=== PATIENT | female | born 1950 | race Hispanic/Latino ===

== ENCOUNTER 2023-01-12 13:51 | Inpatient (IN) | payer MEDICARE, MEDICAID ==
[2023-01-12 14:24] LABS: #Eosinphils 0.1 thou/uL (0.0-0.7); #Lymphocytes 1.1 thou/uL (1.20-3.40); #Monocytes 0.3 thou/uL (0.11-0.59); %Basophils 0.2 % (0.0-1.0); %Eosinophils 2.5 % (0.0-10.0); %Lymphocytes 23.9 % (21.0-51.0); %Monocytes 7.2 % (0.0-10.0); %Neutrophils 66.4 % (42.0-75.0); Hemoglobin 9.4 g/dL (12.0-16.0); Mean Corpuscular HGB CONC 33.4 g/dL (32.0-36.0); Mean Corpuscular Hemoglobin 33.4 pg (27.0-31.0); Mean Platelet Volume 8.3 fL (7.4-10.4); Platelet Count 188 10x3/uL (130-400); RBC Distribution Width 14.7 % (11.5-14.5); Red Blood Cell (RBC) Count 2.82 mill/uL (4.20-5.40); White Blood Cell (WBC) Count 4.6 10x3/uL (4.8-10.8)
[2023-01-12 16:18] LABS: ALT (SGPT) 13 U/L (8-55); AST (SGOT) 17 U/L (5-34); Albumin 3.5 g/dL (3.4-4.8); Alkaline Phosphatase 151 U/L (40-110); Anion Gap 24 mmol/L (10-20); BUN (Urea Nitrogen) 100 mg/dL (9.8-20.1); Bilirubin, Total 0.8 mg/dL (0.2-1.2); Calc. Creatinine Clearance 0 mL/min (70-130); Calcium 7.4 mg/dL (7.8-10.44); Carbon Dioxide 20 mmol/L (23-31); Chloride 99 mmol/L (98-107); Estimated GFR 3; Globulin 3.7 g/dL (2.4-3.5); Glucose 242 mg/dL (83-110); Potassium 5.7 mmol/L (3.5-5.1); Protein, Total 7.2 g/dL (5.8-8.1); Sodium 137 mmol/L (136-145)
[2023-01-12] MEDS ORDERED: Ondansetron PF 4 MG/2 ML Vial IVP PRN (19:15)
[2023-01-12] MEDS ORDERED: Acetaminophen 325 MG TAB PO PRN (19:15)
[2023-01-12] MEDS ORDERED: HumaLOG 300 UNITS/3 ML VIAL SC PRN ×2 (19:20)
[2023-01-12] MEDS ORDERED: Dextrose 50% Abboject 50 ML SYRINGE SLOW IVP PRN (19:20)
[2023-01-12] MEDS ORDERED: Dextrose 5% in Water 1,000 ML IV PRN (19:20)
[2023-01-12 23:53] LABS: HBSAg Index 0.22 S/CO (0-0.99); Hep B Core Total Ab Non-Reactive (NonReactive); Hep B Core Total Index 0.15 S/CO (0-0.79); Hep B Surf Ag Non-Reactive S/CO (NonReactive)
[2023-01-12 23:54] LABS: Hep C IgG Ab Non-Reactive (NonReactive); Hep C Index 0.14 S/CO (0-0.79)
[2023-01-12 23:55] LABS: HBSAB Concentration 109.28 mIU/mL; Hep B Surf AB Reactive (NonReactive)
[2023-01-13] MEDS: Heparin 5,000 UNITS/ML VIAL SC SCH ×2 (02:08→09:33)
[2023-01-13 04:55] LABS: #Eosinphils 0.1 thou/uL (0.0-0.7); #Lymphocytes 0.9 thou/uL (1.20-3.40); #Monocytes 0.5 thou/uL (0.11-0.59); #Neutrophils 4.8 thou/uL (1.40-6.50); %Basophils 0.5 % (0.0-1.0); %Eosinophils 2.2 % (0.0-10.0); %Lymphocytes 14.1 % (21.0-51.0); %Monocytes 7.3 % (0.0-10.0); %Neutrophils 75.9 % (42.0-75.0); Hemoglobin 9.9 g/dL (12.0-16.0); Mean Corpuscular HGB CONC 33.7 g/dL (32.0-36.0); Mean Corpuscular Hemoglobin 33.3 pg (27.0-31.0); Mean Corpuscular Volume 98.8 fl (78.0-98.0); Mean Platelet Volume 8.2 fL (7.4-10.4); Platelet Count 196 10x3/uL (130-400); RBC Distribution Width 14.9 % (11.5-14.5); Red Blood Cell (RBC) Count 2.97 mill/uL (4.20-5.40); White Blood Cell (WBC) Count 6.3 10x3/uL (4.8-10.8)
[2023-01-13 05:23] LABS: Anion Gap 19 mmol/L (10-20); BUN (Urea Nitrogen) 29 mg/dL (9.8-20.1); Calc. Creatinine Clearance 9 mL/min (70-130); Calcium 8.2 mg/dL (7.8-10.44); Carbon Dioxide 25 mmol/L (23-31); Chloride 97 mmol/L (98-107); Estimated GFR 7; Glucose 108 mg/dL (83-110); Magnesium 2.4 mg/dL (1.6-2.6); Potassium 3.7 mmol/L (3.5-5.1); Sodium 137 mmol/L (136-145)
[2023-01-13] MEDS ORDERED: Metoprolol Tartrate 25 MG TAB PO SCH (09:00)
[2023-01-13] MEDS: hydrALAZINE 25 MG TAB PO SCH ×2 (09:34→15:07)
[2023-01-13 12:50] VITALS: BMI 24.7
[2023-01-13] MEDS ORDERED: Sodium Chloride 0.9% 250 ML IV SCH (18:30)
[2023-01-13 20:06] VITALS: BP 128/59; TEMP 98.2
[2023-01-15] MEDS ORDERED: FLU VACC QS2022-23(65YR UP)/PF 240 MCG/0.7 ML SYRINGE IM ONE (09:00)
== END 2023-01-13 20:16 | disposition home or self-care (01) | DRG 640 ==
LOC: ERS 13:51 → 2NO 19:14 → OBSVTOIN 01-13 10:57
PROVIDERS: ADMIT Internal Medicine; ATTEND Internal Medicine
PROC: 5A1D70Z Performance of Urinary Filtration, Intermittent, Less than 6 Hours Per Day (ICD-10-PCS; principal; 2023-01-13)
DX: E87.70 Fluid overload, unspecified (principal); J96.01 Acute respiratory failure with hypoxia; N18.6 End stage renal disease; I12.0 Hypertensive chronic kidney disease with stage 5 chronic kidney disease or end stage renal disease; E11.22 Type 2 diabetes mellitus with diabetic chronic kidney disease; E87.5 Hyperkalemia; D63.1 Anemia in chronic kidney disease; Z99.2 Dependence on renal dialysis; Z23 Encounter for immunization; Z79.899 Other long term (current) drug therapy; Z79.4 Long term (current) use of insulin
CPT/HCPCS: 36415; 36416; 71045; 80048; 80053; 83735; 83880; 85025; 86704; 90935; 93005; 96372; G0257; G0378; J1644; J1815; J7030

== ENCOUNTER 2024-10-02 20:00 | Inpatient (IN) | payer MEDICARE ==
[~2024-10-02 20:00] MED LIST: Iopamidol-370 76% 500 ML MDV (1 ML CHARGE) ONE
[2024-10-02 21:01] LABS: #Basophils 0.03 10x3/uL (0.0-0.2); #Eosinophils Less than 0.03 10x3/uL (0.0-0.7); %Eosinophils 0.6 % (0.0-10.0); %Lymphocytes 21.8 % (21.0-51.0); %Monocytes 15.9 % (0.0-10.0); %Neutrophils 60.1 % (42.0-75.0); Hematocrit 32.2 % (36.0-47.0); Hemoglobin 10.9 g/dL (12.0-16.0); Mean Corpuscular HGB CONC 33.9 g/dL (32.0-36.0); Mean Corpuscular Hemoglobin 32.7 pg (27.0-31.0); Mean Corpuscular Volume 96.7 fL (78.0-98.0); Mean Platelet Volume 11.5 fL (7.4-10.4); Platelet Count 92 10x3/uL (130-400); RBC Distribution Width 16.8 % (11.5-14.5); Red Blood Cell (RBC) Count 3.33 mill/uL (4.20-5.40)
[2024-10-02 21:12] LABS: ALT (SGPT) 6 U/L (8-55); AST (SGOT) 27 U/L (5-34); Alkaline Phosphatase 118 U/L (40-110); Anion Gap 18 mmol/L (10-20); BUN (Urea Nitrogen) 31 mg/dL (9.8-20.1); Bilirubin, Total 1.6 mg/dL (0.2-1.2); Calc. Creatinine Clearance 0 mL/min (70-130); Calcium 8.6 mg/dL (7.8-10.44); Carbon Dioxide 27 mmol/L (23-31); Chloride 90 mmol/L (98-107); Estimated GFR 10; Globulin 4.9 g/dL (2.4-3.5); Glucose 86 mg/dL (83-110); Potassium 3.9 mmol/L (3.5-5.1); Protein, Total 7.9 g/dL (5.8-8.1); Sodium 131 mmol/L (136-145)
[2024-10-02] MEDS ORDERED: Morphine 2 MG/ML VIAL ONE (23:30)
[2024-10-03] MEDS ORDERED: Ondansetron ODT 4 MG TAB SL PRN (04:00)
[2024-10-03] MEDS ORDERED: Ondansetron PF 4 MG/2 ML Vial IVP PRN (04:00)
[2024-10-03] MEDS ORDERED: Acetaminophen 325 MG TAB PO PRN (04:00)
[2024-10-03] MEDS ORDERED: Senokot S 8.6-50 MG TAB PO PRN (04:36)
[2024-10-03] MEDS ORDERED: Benzonatate 100 MG CAP PO PRN (05:23)
[2024-10-03] MEDS ORDERED: Insulin Lispro 100 UNIT/ML 10 ML VIAL SC PRN ×2 (05:39)
[2024-10-03] MEDS ORDERED: Dextrose 5% in Water 1,000 ML IV PRN (05:39)
[2024-10-03] MEDS ORDERED: Dextrose 50% Abboject 50 ML SYRINGE SLOW IVP PRN (05:39)
[2024-10-03] MEDS ORDERED: Glucagon 1 MG/ML KIT IM PRN (05:39)
[2024-10-03 05:51] VITALS: BMI 25.4
[2024-10-03 07:03] LABS: INR-International Normal Ratio 1.5; Prothrombin Time 17.9 sec (12.0-14.7)
[2024-10-03] MEDS: Atorvastatin Calcium 20 MG TAB PO SCH (10:00)
[2024-10-03] MEDS: Sertraline 100 MG TAB PO SCH (10:00)
[2024-10-03] MEDS: Pantoprazole DR 40 MG TAB PO SCH (10:00)
[2024-10-03] MEDS: Amlodipine 10 MG TAB PO SCH (11:48)
[2024-10-03] MEDS: Carvedilol 6.25 MG TAB PO SCH (11:48)
[2024-10-03] MEDS: hydrALAZINE 25 MG TAB PO SCH (11:50)
[2024-10-04] MEDS: Acetaminophen 325 MG TAB PO PRN (01:27)
[2024-10-04 04:04] LABS: ALT (SGPT) 9 U/L (8-55); AST (SGOT) 35 U/L (5-34); Albumin 2.9 g/dL (3.4-4.8); Alkaline Phosphatase 113 U/L (40-110); Anion Gap 17 mmol/L (10-20); BUN (Urea Nitrogen) 16 mg/dL (9.8-20.1); Bilirubin, Total 1.5 mg/dL (0.2-1.2); Calc. Creatinine Clearance 14 mL/min (70-130); Calcium 8.3 mg/dL (7.8-10.44); Carbon Dioxide 25 mmol/L (23-31); Chloride 96 mmol/L (98-107); Estimated GFR 15; Globulin 4.9 g/dL (2.4-3.5); Glucose 124 mg/dL (83-110); Potassium 3.9 mmol/L (3.5-5.1); Protein, Total 7.8 g/dL (5.8-8.1); Sodium 134 mmol/L (136-145)
[2024-10-04 04:16] LABS: INR-International Normal Ratio 1.4; Prothrombin Time 16.8 sec (12.0-14.7)
[2024-10-04 04:23] LABS: HBsAg Index 0.29 S/CO (0-0.99); Hep A IgM AB NONREACTIVE (NonReactive); Hep A IgM S/CO 0.18 S/CO (0-0.79); Hep B Core IgM Index 0.07 S/CO (0-0.79); Hep B Surf Ag NONREACTIVE S/CO (NonReactive); Hep C IgG Ab NONREACTIVE S/CO (NonReactive); Hep C Index 0.13 S/CO (0-0.79); Hepatitis B Core IgM Abs NONREACTIVE S/CO (NonReactive)
[2024-10-04 04:32] LABS: #Basophils 0.03 10x3/uL (0.0-0.2); %Basophils 0.9 % (0.0-1.0); %Eosinophils 0.9 % (0.0-10.0); %Lymphocytes 15.8 % (21.0-51.0); %Monocytes 14.9 % (0.0-10.0); %Neutrophils 67.2 % (42.0-75.0); Hematocrit 32.1 % (36.0-47.0); Mean Corpuscular HGB CONC 34.3 g/dL (32.0-36.0); Mean Corpuscular Hemoglobin 32.6 pg (27.0-31.0); Mean Corpuscular Volume 95.3 fL (78.0-98.0); Mean Platelet Volume 11.3 fL (7.4-10.4); Platelet Count 91 10x3/uL (130-400); RBC Distribution Width 16.7 % (11.5-14.5); Red Blood Cell (RBC) Count 3.37 mill/uL (4.20-5.40)
[2024-10-04 05:03] LABS: Ferritin 3670.79 ng/mL (10-291)
[2024-10-04] MEDS ORDERED: Sodium Bicarbonate 2.5 MEQ/5 ML SDV ONE (09:32)
[2024-10-04] MEDS ORDERED: Lidocaine 1% PF 5 ML VIAL ONE (09:32)
[2024-10-04 11:12] LABS: RBC Count-Automated (BF) 1072 /cu.mm; WBC/Nucleated-Auto (BF) 251 /cu.mm
[2024-10-04 11:14] LABS: Fluid, Protein 4.4 g/dL (Not Available)
[2024-10-04] MEDS: Ondansetron PF 4 MG/2 ML Vial IVP PRN (12:37)
[2024-10-04] MEDS: Calcium Carbonate 500 MG ChewTAB PO PRN (12:38)
[2024-10-04 13:13] LABS: BF Color Yellow; Body Fluid Source Ascites Body Fluid; Clarity Hazy (Clear); Tube # EDTA
[2024-10-04 13:18] LABS: Cell Count Non Hematic 81 %; Lymphocytes 18 %
[2024-10-04] MEDS: cefTRIAXone\\ROCEPHIN 2 GM in Sodium Chloride 0.9% 100 ML IVPB SCH (16:27)
[2024-10-04] MEDS ORDERED: hydrALAZINE 20 MG/ML VIAL SLOW IVP PRN (18:22)
[2024-10-05] MEDS: Artificial Tear Ophth Sol 15 ML BOT EA EYE PRN (00:59)
[2024-10-05 03:31] LABS: #Basophils Less than 0.03 10x3/uL (0.0-0.2); %Basophils 0.6 % (0.0-1.0); %Eosinophils 2.5 % (0.0-10.0); %Lymphocytes 16.4 % (21.0-51.0); %Monocytes 16.4 % (0.0-10.0); %Neutrophils 63.8 % (42.0-75.0); Hematocrit 31.5 % (36.0-47.0); Hemoglobin 10.4 g/dL (12.0-16.0); Mean Corpuscular Hemoglobin 31.8 pg (27.0-31.0); Mean Corpuscular Volume 96.3 fL (78.0-98.0); Mean Platelet Volume 11.4 fL (7.4-10.4); Platelet Count 96 10x3/uL (130-400); RBC Distribution Width 16.8 % (11.5-14.5); Red Blood Cell (RBC) Count 3.27 mill/uL (4.20-5.40)
[2024-10-05 03:50] LABS: Anion Gap 16 mmol/L (10-20); BUN (Urea Nitrogen) 24 mg/dL (9.8-20.1); Calc. Creatinine Clearance 11 mL/min (70-130); Calcium 7.8 mg/dL (7.8-10.44); Carbon Dioxide 26 mmol/L (23-31); Chloride 94 mmol/L (98-107); Estimated GFR 11; Glucose 130 mg/dL (83-110); Iron 71 ug/dL (50-170); Iron Binding Capacity, Total 198 mcg/dL (265-497); Potassium 4.3 mmol/L (3.5-5.1); Sodium 132 mmol/L (136-145)
[2024-10-05 03:51] LABS: Iron 66 ug/dL (50-170); Iron Binding Capacity, Total 199 mcg/dL (265-497)
[2024-10-05 03:53] LABS: Immunoglob - G (Total IgG) 2471 mg/dL (552-1631); Immunoglob - M (Total IgM) 47 mg/dL (33-293)
[2024-10-05] MEDS ORDERED: Heparin 10,000 UNITS/ 10 ML VIAL ONE (09:50)
[2024-10-05 12:21] LABS: ANA Symphony (Qualitative) Equivocal: See Note (Negative); ANA Symphony (Quantitative) 0.7 Ratio (< 0.7 Negative); dsDNA IgG Antibody 3.7 IU/mL (<10 Negative)
[2024-10-05] MEDS: NIFEdipine XL 60 MG ER.TAB PO SCH (12:35)
[2024-10-05 13:31] LABS: EliA Vaculitis New Method **** NEW METHOD ****; Mitochondrial Ab 3.7 U/mL (<4 Negative)
[2024-10-05] MEDS: Sodium Chloride 0.9% 250 ML 250 ML IVPB SCH (19:29)
[2024-10-06 03:59] LABS: #Basophils 0.03 10x3/uL (0.0-0.2); %Basophils 0.7 % (0.0-1.0); %Eosinophils 1.7 % (0.0-10.0); %Lymphocytes 15.8 % (21.0-51.0); %Monocytes 13.1 % (0.0-10.0); %Neutrophils 68.2 % (42.0-75.0); Hematocrit 32.4 % (36.0-47.0); Hemoglobin 10.6 g/dL (12.0-16.0); Mean Corpuscular HGB CONC 32.7 g/dL (32.0-36.0); Mean Corpuscular Hemoglobin 31.8 pg (27.0-31.0); Mean Corpuscular Volume 97.3 fL (78.0-98.0); Mean Platelet Volume 10.9 fL (7.4-10.4); Platelet Count 108 10x3/uL (130-400); RBC Distribution Width 17.3 % (11.5-14.5); Red Blood Cell (RBC) Count 3.33 mill/uL (4.20-5.40)
[2024-10-06 04:28] LABS: Hemoglobin A1c 5.2 % (4.0-6.0)
[2024-10-06 04:31] LABS: Anion Gap 16 mmol/L (10-20); BUN (Urea Nitrogen) 15 mg/dL (9.8-20.1); Calc. Creatinine Clearance 13 mL/min (70-130); Calcium 7.8 mg/dL (7.8-10.44); Carbon Dioxide 24 mmol/L (23-31); Chloride 95 mmol/L (98-107); Estimated GFR 14; Glucose 111 mg/dL (83-110); Potassium 4.4 mmol/L (3.5-5.1); Sodium 131 mmol/L (136-145)
[2024-10-06] MEDS: NIFEdipine XL 30 MG ER.TAB PO SCH (08:45)
[2024-10-06 12:09] VITALS: TEMP 98
[2024-10-06 15:11] VITALS: BP 157/72
== END 2024-10-06 18:00 | disposition home or self-care (01) | DRG 432 ==
LOC: ERS 20:00 → PCU 10-03 03:55 → OBSVTOIN 10-04 15:02
PROVIDERS: ADMIT Internal Medicine; ATTEND Internal Medicine
PROC: 0W9G3ZZ Drainage of Peritoneal Cavity, Percutaneous Approach (ICD-10-PCS; principal; 2024-10-04)
DX: K70.31 Alcoholic cirrhosis of liver with ascites (principal); N18.6 End stage renal disease; E87.1 Hypo-osmolality and hyponatremia; J90 Pleural effusion, not elsewhere classified; K76.6 Portal hypertension; I13.2 Hypertensive heart and chronic kidney disease with heart failure and with stage 5 chronic kidney disease, or end stage renal disease; I07.1 Rheumatic tricuspid insufficiency; I50.810 Right heart failure, unspecified; Z99.2 Dependence on renal dialysis; E78.5 Hyperlipidemia, unspecified; E11.22 Type 2 diabetes mellitus with diabetic chronic kidney disease; B34.9 Viral infection, unspecified; D63.1 Anemia in chronic kidney disease; Z79.899 Other long term (current) drug therapy; K21.9 Gastro-esophageal reflux disease without esophagitis; D69.6 Thrombocytopenia, unspecified; I27.20 Pulmonary hypertension, unspecified
CPT/HCPCS: 36415; 36416; 49083; 71046; 74177; 80048; 80053; 80074; 82042; 82103; 82105; 82140; 82390; 82728; 82945; 83036; 83516; 83540; 83550; 83615; 83880; 84157; 85025; 85060; 85610; 86015; 86038; 86225; 86304; 87428; 89051; 93005; 93306; 96374; 96375; G0378; J0696; J1644; J2272; J2405; Q9967